=== PATIENT | male | born 1965 | race Caucasian/White ===

== ENCOUNTER 2019-01-15 16:50 | Inpatient (IN) | payer OTHER ==
[2019-01-15 18:33] VITALS: BMI 25.0
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
[2019-01-15] MEDS ORDERED: IBUPROFEN 400 MG TABLET (FP) PO PRN (21:20)
[2019-01-15] MEDS ORDERED: ACETAMINOPHEN 325 MG TABLET (FP) PO PRN (21:20)
[2019-01-15] MEDS ORDERED: MAG HYDROX/AL HYDROX/SIMETH 30 ML UNIT-DOSE CUP PO PRN (21:20)
[2019-01-15] MEDS ORDERED: hydrOXYzine PAMOATE 25 MG CAPSULE (FP) PO PRN (21:20)
[2019-01-15] MEDS ORDERED: MENTHOL/PHENOL 1 EACH UD MM PRN (21:20)
[2019-01-15] MEDS ORDERED: MAGNESIUM HYDROX 2400MG/30ML ORAL SUSPENSION 30 ML CUP PO PRN (21:20)
[2019-01-15] MEDS ORDERED: LOPERAMIDE HCL 2 MG CAPSULE PO PRN (21:20)
[2019-01-15] MEDS ORDERED: P-EPHED 60MG/TRIPROLIDI 2.5MG TABLET PO PRN (21:20)
[2019-01-15] MEDS ORDERED: guaiFENesin 200 MG/10 ML 10 ML UNIT-DOSE CUPS PO PRN (21:20)
[2019-01-15] MEDS ORDERED: MAGNESIUM CITRATE 300 ML BOTTLE PO PRN (21:20)
[2019-01-15] MEDS: THIAMINE HCL 100 MG TABLET (FP) PO SCH (22:45)
--- NOTE | 2019-01-16 09:08 | EKG ---
Test Reason : Blood Pressure : / mmHG Vent. Rate : 082 BPM Atrial Rate : 082 BPM P-R Int : 166 ms QRS Dur : 100 ms QT Int : 380 ms P-R-T Axes : 032 036 028 degrees QTc Int : 443 ms NORMAL SINUS RHYTHM NORMAL ECG NO PREVIOUS ECGS AVAILABLE Confirmed by Fabiano Good MD ([id number]) on 01/16/2019 9:07:46 AM Referred By: Confirmed By:Fabiano Good MD
--- NOTE | 2019-01-16 09:12 | CONSULT ---
[facility] Psychiatric Consult - Data Date of interview: 11/16/18 Admission source: [facility] Identifying data: Patient is a 53 year old single [place] male, without children, unemployed, resides in an [place], and is supported by medicaid benefits and food stamps. This is patient's first admission to rehab at [facility]. Patient admitted to for crystal meth dependence. Substance Abuse History: - Substances abused. Methamphetamine. Substance route: Smoking. Frequency: 1-2 times per week. Amount used: $150/ EVERY 3 DAYS. Age of first use: 40. Date of last use: Medical History: HIV Psychiatric History: Mr. Coombs's first psychiatric contact was at 13 years of age after experiencing a nervous breakdown due to identity issues (realized that at he was attracted to the same gender). He was taken to [facility] and admitted to the psychiatric unit. Mr. Coombs has no recollection of diagnosis or medications prescribed. Denies additional psychiatric hospitalizations. Reports seeing multiple psychiatrist thoughout the years. History of poor compliance to treatment until recently. Mr. Alejandre is currently followed by Dr. Juan at the [facility] in [place] and is prescribed Wellbutrin 300mg daily + Abilify 15mg daily. Diagnosis of PTSD. Patient denies history of suicide attempt. At present patient reports stable mood. Physical/Sexual Abuse/Trauma History: denies. Mental Status Exam - Mental Status Exam Alert and Oriented to: Time, Place, Person Cognitive Function: Good Patient Appearance: Well Groomed Mood: Euthymic Affect: Mood Congruent Patient Behavior: Appropriate, Cooperative Speech Pattern: Clear, Appropriate Voice Loudness: Normal Thought Process: Goal Oriented Thought Disorder: Not Present Hallucinations: Denies Suicidal Ideation: Denies Homicidal Ideation: Denies Insight/Judgement: Poor Sleep: Fair Appetite: Fair Muscle strength/Tone: Normal Gait/Station: Normal Psychiatric Findings - Problem List ([place] 1, 2,3) (1) PTSD (post-traumatic stress disorder) Current Visit: Yes Status: Chronic (2) Methamphetamine abuse, episodic Current Visit: Yes Status: Chronic (3) MDD (major depressive disorder) Current Visit: Yes Status: Chronic - Initial Treatment Plan Initial Treatment Plan: Psycheducation provided. Rehab in progress. Will order Wellbutrin 300mg XL + Abilify 15mg daily. Benefits and side effects discussed. Verbal consent given.
[2019-01-16] MEDS: PRENATAL VITAMINS W/ FOLIC ACID TABLET (FP) PO SCH (10:29)
[2019-01-16 11:03] LABS: URINE APPEARANCE CLEAR; URINE BILIRUBIN NEGATIVE (NEGATIVE); URINE COLOR YELLOW; URINE GLUCOSE (UA) NEGATIVE (NEGATIVE); URINE KETONE NEGATIVE (NEGATIVE); URINE LEUK ESTERASE NEGATIVE (NEGATIVE); URINE NITRITE NEGATIVE (NEGATIVE); URINE PROTEIN NEGATIVE (NEGATIVE)
[2019-01-16] MEDS: ARIPiprazole 15 MG TABLET PO SCH (11:29)
[2019-01-16 12:09] LABS: HEMATOCRIT 41.3 % (35.4-49); HEMOGLOBIN 13.8 GM/dL (11.7-16.9); MCH 32.6 pg (25.7-33.7); MCHC 33.4 g/dl (32.0-35.9); MEAN CELL VOLUME 97.8 fl (80-96); MEAN PLT VOLUME 8.5 fl (7.5-11.1); PLATELET COUNT 190 K/MM3 (134-434); RBC 4.22 M/mm3 (4.00-5.60); RDW 13.6 % (11.9-15.9); WHITE BLOOD COUNT 5.1 K/mm3 (4.0-10.0)
[2019-01-16 12:13] LABS: ALBUMIN 3.5 g/dl (3.4-5.0); BILIRUBIN,TOTAL 1.2 mg/dL (0.2-1); CALCIUM 8.5 mg/dL (8.5-10.1); CREATININE 1.2 mg/dL (0.55-1.3); TOT PROT 6.8 g/dl (6.4-8.2)
[2019-01-16] MEDS: THIAMINE HCL 100 MG TABLET (FP) PO SCH (21:38)
[2019-01-16] MEDS: MELATONIN 5 MG TABLETS PO PRN (21:38)
[2019-01-17] MEDS: BICTEGRAV/EMTRICIT/TENOFOV (BIKTARVY) 50-200-25 MG TABLET PO SCH ×2 (02:17→09:35)
[2019-01-17] MEDS: ARIPiprazole 15 MG TABLET PO SCH (09:35)
[2019-01-17] MEDS: PRENATAL VITAMINS W/ FOLIC ACID TABLET (FP) PO SCH (09:35)
[2019-01-17 12:26] LABS: RPR REACTIVE 1:2 (NONREACTIVE)
[2019-01-17 14:50] LABS: TREPONEMA ANTIBODY REACTIVE (NONREACTIVE)
[2019-01-17] MEDS: THIAMINE HCL 100 MG TABLET (FP) PO SCH (21:05)
[2019-01-18] MEDS: PRENATAL VITAMINS W/ FOLIC ACID TABLET (FP) PO SCH (10:29)
[2019-01-18] MEDS: BICTEGRAV/EMTRICIT/TENOFOV (BIKTARVY) 50-200-25 MG TABLET PO SCH (10:29)
[2019-01-18] MEDS: ARIPiprazole 15 MG TABLET PO SCH (10:29)
[2019-01-18] MEDS: THIAMINE HCL 100 MG TABLET (FP) PO SCH (22:24)
[2019-01-19] MEDS: PRENATAL VITAMINS W/ FOLIC ACID TABLET (FP) PO SCH (10:30)
[2019-01-19] MEDS: ARIPiprazole 15 MG TABLET PO SCH (10:30)
[2019-01-19] MEDS: BICTEGRAV/EMTRICIT/TENOFOV (BIKTARVY) 50-200-25 MG TABLET PO SCH (10:30)
--- NOTE | 2019-01-19 13:29 | PN ---
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 HIV+, states he was treated for same prior to admission here. Sees his HIV provider every 3 months and is tested at the that time. His viral load is undetectable and his CD4 count is ~700, by self report. Adherent to his HIV medication. Objective: 01/19/19 13:24 Laboratory Tests 01/16/19 01/16/19 01/16/19 07:50 08:20 08:20 WBC 5.1 RBC 4.22 Hgb 13.8 Hct 41.3 MCV 97.8 H MCH 32.6 MCHC 33.4 RDW 13.6 Plt Count 190 MPV 8.5 Sodium 142 Potassium 4.0 Chloride 108 H Carbon Dioxide 25 Anion Gap 9 BUN 16.0 Creatinine 1.2 Est GFR (CKD-EPI)AfAm 80.10 Est GFR (CKD-EPI)NonAf 69.11 Random Glucose 114 H Calcium 8.5 Total Bilirubin 1.2 H AST 26 ALT 23 Alkaline Phosphatase 93 Total Protein 6.8 Albumin 3.5 Urine Color Yellow Urine Appearance Clear Urine pH 6.0 Ur Specific [place] 1.026 Urine Protein Negative Urine Glucose (UA) Negative Urine Ketones Negative Urine Blood Negative Urine Nitrite Negative Urine Bilirubin Negative Urine Urobilinogen 1.0 Ur Leukocyte Esterase Negative RPR Titer T.pallidum Ab (MHA) 01/16/19 08:20 WBC RBC Hgb Hct MCV MCH MCHC RDW Plt Count MPV Sodium Potassium Chloride Carbon Dioxide Anion Gap BUN Creatinine Est GFR (CKD-EPI)AfAm Est GFR (CKD-EPI)NonAf Random Glucose Calcium Total Bilirubin AST ALT Alkaline Phosphatase Total Protein Albumin Urine Color Urine Appearance Urine pH Ur Specific [place] Urine Protein Urine Glucose (UA) Urine Ketones Urine Blood Urine Nitrite Urine Bilirubin Urine Urobilinogen Ur Leukocyte Esterase RPR Titer Reactive 1:2 H T.pallidum Ab (MHA) Reactive 01/19/19 13:26 General: no apparent distress HEENTM: normocephalic, PERRLA Neck: supple Lungs: clear Heart: s1 s2 Assessment: At risk for STIs +RPR 01/19/19 13:29 Plan: Patient does not want to be treated again. Patient agreed to take the syphilis report to his PCP for review and to determine if he needs to be re-tested or if he should be treated. Cautioned to use condoms for any sexual activity until he is sure of his status. Patient agreed
[2019-01-19] MEDS: THIAMINE HCL 100 MG TABLET (FP) PO SCH (21:10)
[2019-01-19] MEDS: MELATONIN 5 MG TABLETS PO PRN (21:10)
[2019-01-20] MEDS: ARIPiprazole 15 MG TABLET PO SCH (09:12)
[2019-01-20] MEDS: PRENATAL VITAMINS W/ FOLIC ACID TABLET (FP) PO SCH (09:12)
[2019-01-20] MEDS: BICTEGRAV/EMTRICIT/TENOFOV (BIKTARVY) 50-200-25 MG TABLET PO SCH (09:12)
[2019-01-20] MEDS: MELATONIN 5 MG TABLETS PO PRN (21:33)
[2019-01-20] MEDS: THIAMINE HCL 100 MG TABLET (FP) PO SCH (21:33)
[2019-01-21] MEDS: BICTEGRAV/EMTRICIT/TENOFOV (BIKTARVY) 50-200-25 MG TABLET PO SCH (09:24)
[2019-01-21] MEDS: ARIPiprazole 15 MG TABLET PO SCH (09:25)
[2019-01-21] MEDS: PRENATAL VITAMINS W/ FOLIC ACID TABLET (FP) PO SCH (09:25)
[2019-01-21] MEDS: MELATONIN 5 MG TABLETS PO PRN (21:31)
[2019-01-21] MEDS: THIAMINE HCL 100 MG TABLET (FP) PO SCH (21:31)
[2019-01-22] MEDS: ARIPiprazole 15 MG TABLET PO SCH (10:11)
[2019-01-22] MEDS: PRENATAL VITAMINS W/ FOLIC ACID TABLET (FP) PO SCH (10:11)
[2019-01-22] MEDS: BICTEGRAV/EMTRICIT/TENOFOV (BIKTARVY) 50-200-25 MG TABLET PO SCH (10:11)
[2019-01-22] MEDS: THIAMINE HCL 100 MG TABLET (FP) PO SCH (22:12)
[2019-01-22] MEDS: MELATONIN 5 MG TABLETS PO PRN (22:13)
[2019-01-23] MEDS: BICTEGRAV/EMTRICIT/TENOFOV (BIKTARVY) 50-200-25 MG TABLET PO SCH (09:51)
[2019-01-23] MEDS: ARIPiprazole 15 MG TABLET PO SCH (09:51)
[2019-01-23] MEDS: PRENATAL VITAMINS W/ FOLIC ACID TABLET (FP) PO SCH (09:51)
[2019-01-23] MEDS: THIAMINE HCL 100 MG TABLET (FP) PO SCH (21:33)
[2019-01-24] MEDS: ARIPiprazole 15 MG TABLET PO SCH (10:04)
[2019-01-24] MEDS: BICTEGRAV/EMTRICIT/TENOFOV (BIKTARVY) 50-200-25 MG TABLET PO SCH (10:04)
[2019-01-24] MEDS: PRENATAL VITAMINS W/ FOLIC ACID TABLET (FP) PO SCH (10:04)
[2019-01-24] MEDS: THIAMINE HCL 100 MG TABLET (FP) PO SCH (21:42)
[2019-01-24] MEDS: MELATONIN 5 MG TABLETS PO PRN (21:42)
[2019-01-25] MEDS: ARIPiprazole 15 MG TABLET PO SCH (09:59)
[2019-01-25] MEDS: PRENATAL VITAMINS W/ FOLIC ACID TABLET (FP) PO SCH (09:59)
[2019-01-25] MEDS: BICTEGRAV/EMTRICIT/TENOFOV (BIKTARVY) 50-200-25 MG TABLET PO SCH (10:00)
[2019-01-25] MEDS: MELATONIN 5 MG TABLETS PO PRN (21:09)
[2019-01-25] MEDS: THIAMINE HCL 100 MG TABLET (FP) PO SCH (21:09)
[2019-01-26] MEDS: PRENATAL VITAMINS W/ FOLIC ACID TABLET (FP) PO SCH (10:09)
[2019-01-26] MEDS: BICTEGRAV/EMTRICIT/TENOFOV (BIKTARVY) 50-200-25 MG TABLET PO SCH (10:09)
[2019-01-26] MEDS: ARIPiprazole 15 MG TABLET PO SCH (10:09)
[2019-01-26] MEDS: THIAMINE HCL 100 MG TABLET (FP) PO SCH (21:01)
[2019-01-26] MEDS: MELATONIN 5 MG TABLETS PO PRN (21:01)
[2019-01-27] MEDS: ARIPiprazole 15 MG TABLET PO SCH (10:09)
[2019-01-27] MEDS: PRENATAL VITAMINS W/ FOLIC ACID TABLET (FP) PO SCH (10:09)
[2019-01-27] MEDS: BICTEGRAV/EMTRICIT/TENOFOV (BIKTARVY) 50-200-25 MG TABLET PO SCH (10:09)
[2019-01-27] MEDS: MELATONIN 5 MG TABLETS PO PRN (22:02)
[2019-01-27] MEDS: THIAMINE HCL 100 MG TABLET (FP) PO SCH (22:02)
[2019-01-28] MEDS: PRENATAL VITAMINS W/ FOLIC ACID TABLET (FP) PO SCH (09:51)
[2019-01-28] MEDS: ARIPiprazole 15 MG TABLET PO SCH (09:51)
[2019-01-28] MEDS: BICTEGRAV/EMTRICIT/TENOFOV (BIKTARVY) 50-200-25 MG TABLET PO SCH (09:52)
--- NOTE | 2019-01-28 12:22 | PN ---
[facility] Progress Note Note: Psychiatric nurse practitioner note: Patient scheduled for discharge tomorrow 01/29/19. A 30 day prescription of Abilify 15mg + Wellbutrin 300mg XL was electronically sent to [place] [facility], [address] [place] [address].
[2019-01-28] MEDS: MELATONIN 5 MG TABLETS PO PRN (21:14)
[2019-01-28] MEDS: THIAMINE HCL 100 MG TABLET (FP) PO SCH (21:14)
[2019-01-29 07:05] VITALS: BP 112/66; PULSE 85; TEMP 97.8
--- NOTE | 2019-01-29 09:22 | DS ---
[facility] - [facility] Dis[facility] Summary Admission Date: 01/15/19 Discharge Date: 01/29/19 - History Pertinent Past History: Patient completed rehab for crystal metamphetamine use , 2 x/week on weekends only x 15 years , claims he was referred by outpt program & parole . PMHX : hiv dx 1984 on meds, PCP Dr. Perla Juan, claims compliance w/ meds , brought own meds PSHX : depression, PTSD , SHX : lives in [place] , no children , on parole until 2019 for drug-related charges - Discharge Physical Exam Vital Signs: Vital Signs Temperature 97.8 F 01/28/19 22:00 Pulse Rate 85 01/28/19 22:00 Respiratory Rate 18 01/29/19 03:30 Blood Pressure 112/66 01/28/19 22:00 O2 Sat by Pulse Oximetry (%) Laboratory Tests 01/16/19 01/16/19 01/16/19 07:50 08:20 08:20 WBC 5.1 RBC 4.22 Hgb 13.8 Hct 41.3 MCV 97.8 H MCH 32.6 MCHC 33.4 RDW 13.6 Plt Count 190 MPV 8.5 Sodium 142 Potassium 4.0 Chloride 108 H Carbon Dioxide 25 Anion Gap 9 BUN 16.0 Creatinine 1.2 Est GFR (CKD-EPI)AfAm 80.10 Est GFR (CKD-EPI)NonAf 69.11 Random Glucose 114 H Calcium 8.5 Total Bilirubin 1.2 H AST 26 ALT 23 Alkaline Phosphatase 93 Total Protein 6.8 Albumin 3.5 Urine Color Yellow Urine Appearance Clear Urine pH 6.0 Ur Specific [place] 1.026 Urine Protein Negative Urine Glucose (UA) Negative Urine Ketones Negative Urine Blood Negative Urine Nitrite Negative Urine Bilirubin Negative Urine Urobilinogen 1.0 Ur Leukocyte Esterase Negative RPR Titer T.pallidum Ab (A) 01/16/19 08:20 WBC RBC Hgb Hct MCV MCH MCHC RDW Plt Count MPV Sodium Potassium Chloride Carbon Dioxide Anion Gap BUN Creatinine Est GFR (CKD-EPI)AfAm Est GFR (CKD-EPI)NonAf Random Glucose Calcium Total Bilirubin AST ALT Alkaline Phosphatase Total Protein Albumin Urine Color Urine Appearance Urine pH Ur Specific [place] Urine Protein Urine Glucose (UA) Urine Ketones Urine Blood Urine Nitrite Urine Bilirubin Urine Urobilinogen Ur Leukocyte Esterase RPR Titer Reactive 1:2 H T.pallidum Ab (MHA) Reactive Ambulatory Orders Aripiprazole [Abilify] 15 mg PO DAILY 01/15/19 Bictegrav/Emtricit/Tenofov Ala [Biktarvy 50-200-25 mg Tablet] 1 tab PO DAILY 10/26 Bupropion HCl [Wellbutrin Xl] 300 mg PO DAILY 01/15/19 Mirtazapine 15 mg PO HS PRN 01/15/19 Aripiprazole [Abilify -] 15 mg PO DAILY #30 tablet 01/28/19 Bupropion HCl [Wellbutrin Xl -] 300 mg PO DAILY #30 tab.sr.24h 01/28/19 ROS; denies sweating, n/v/d, anxiety/restlessness and cravings PE: alert and oriented x 3 skin warm and dry +perrla, eoms intact bl car s1s2 resp cta bl ext no tremors,amb ad monico full rom denies si/hi - Treatment Discharge Condition: Discharge condition good Hospital Course: Patient completed rehab today for Crystal Meth dependence. Patient attended group meetings and 1:1 sessions with counselor. Patient is medically stable and denies SI/HI. Aftercare arranged for [facility] with appt today 01/29/19 at 3pm. Medical care to be continued with Dr. Perla Juan, appt 02/27/19. Patient informed provider he has all his medications in belongings and does not need refill at this time. Patient is medically stable for discharge. - Medication Discharge Medications: Ambulatory Orders Aripiprazole [Abilify] 15 mg PO DAILY 01/15/19 Bictegrav/Emtricit/Tenofov Ala [Biktarvy 50-200-25 mg Tablet] 1 tab PO DAILY 10/26 Bupropion HCl [Wellbutrin Xl] 300 mg PO DAILY 01/15/19 Mirtazapine 15 mg PO HS PRN 01/15/19 Aripiprazole [Abilify -] 15 mg PO DAILY #30 tablet 01/28/19 Bupropion HCl [Wellbutrin Xl -] 300 mg PO DAILY #30 tab.sr.24h 01/28/19 - Medication-Assisted Treatment (MAT) Medication-Assisted Treatment (MAT): No - Discharge Instructions Diet, activity, other medical instructions: Diet: reg as tolerated Activity: as tolerated Other medical instructions: follow up with pcp as recommended - Follow-up Referral Minutes to complete discharge: 30 - AMA Did Patient Leave Against Medical Advice: No
[2019-01-29] MEDS: BICTEGRAV/EMTRICIT/TENOFOV (BIKTARVY) 50-200-25 MG TABLET PO SCH (09:33)
[2019-01-29] MEDS: PRENATAL VITAMINS W/ FOLIC ACID TABLET (FP) PO SCH (09:33)
[2019-01-29] MEDS: ARIPiprazole 15 MG TABLET PO SCH (09:55)
== END 2019-01-29 10:00 | disposition home or self-care (01) | DRG 776 ==
LOC: YASAS 16:50 → Y3W 21:59 → Y3E 01-21 10:24 → Y3W 01-21 10:25 → Y5N 01-28 18:49
PROVIDERS: ADMIT Neuromusculoskeletal Medicine & OMM; ATTEND Neuromusculoskeletal Medicine & OMM
PROC: HZ42ZZZ Group Counseling for Substance Abuse Treatment, Cognitive-Behavioral (ICD-10-PCS; principal; 2019-01-15)
DX: F15.10 Other stimulant abuse, uncomplicated (principal); F43.10 Post-traumatic stress disorder, unspecified; F32.9 Major depressive disorder, single episode, unspecified; Z21 Asymptomatic human immunodeficiency virus [HIV] infection status
CPT/HCPCS: 36415; 80053; 81003; 85027; 86593; 86780; 93005; 93010